=== PATIENT | female | born 1980 | race Caucasian/White ===

== ENCOUNTER 2017-01-09 11:48 | Emergency (ER) | payer OTHER ==
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
[~2017-01-09 11:48] MED LIST: AMITRIPTYLINE H25 MG PO; AMLODIPINE BESYL5 MG PO; AMOXICILLIN500 M1 PO; BACTRIM DS TABL1 TA1 PO; BENTYL10 MG; BENTYL10 MG PO; BENTYL20 MG PO; CREON DR 12,001 EAC1 PO; CYANOCOBALAM1000 MCG PO; DILAUDID2 MG PO; DOXYCYCLINE HY100 M2 PO; HYDROCODON-ACE1 EAC7 PO; IBUPROFEN100 MG PO; INDERAL40 MG PO; K-DUR20 ME1 PO; LEVOTHYROXINE25 MC1 PO; LISINOPRIL10 MG PO; LORTAB 5/500 TA1 TA1; LORTAB 5/500 TA1 TA1 PO; MOTRIN600 MG PO; NO MEDICATIONS; OMEPRAZOLE40 M1 PO; OXYCODONE HCL5 MG PO; OXYCONTIN30 MG PO; PERCOCET PO; PERCOCET10 PO; PHENERGAN; PHENERGAN PR; PHENERGAN SUPP25 MG PR; PHENERGAN25 MG PO; PHENERGAN25 MG PR; ROXICODONE30 M1 PO; SEROQUEL XR150 MG PO; SEROQUEL XR50 MG PO; SYNTHROID125 PO; TRANSDERM-1 PATCH .7 TOP; TYLENOL #3 PO; VICODIN 5/1 TAB 5/50 PO; WELCHOL3.75 GM; ZOFRAN ODT4 MG PO; ZOFRAN PO
[2017-01-09] MEDS ORDERED: LIPITOR20 MG (11:55)
[2017-01-09] MEDS ORDERED: AMITRIPTYLINE H25 MG PO (11:55)
[2017-01-09] MEDS ORDERED: PERCOCET10 PO (11:55)
[2017-01-09] MEDS ORDERED: ZOFRAN (11:56)
== END 2017-01-09 13:00 ==
LOC: SED 11:48
DX: S01.511A Laceration without foreign body of lip, initial encounter (principal); F10.129 Alcohol abuse with intoxication, unspecified; Z23 Encounter for immunization; I10 Essential (primary) hypertension; K85.90 Acute pancreatitis without necrosis or infection, unspecified; F17.210 Nicotine dependence, cigarettes, uncomplicated; V43.52XA Car driver injured in collision with other type car in traffic accident, initial encounter; Y92.410 Unspecified street and highway as the place of occurrence of the external cause
CPT/HCPCS: 12011; 72125; 90471; 90715; 99284